=== PATIENT | female | born 1950 | race African-American/Black ===

== ENCOUNTER 2022-10-16 16:18 | Emergency (ER) | payer MEDICARE, MEDICAID ==
[~2022-10-16] VITALS: Ht 160 cm; Wt 73.0 kg
[~2022-10-16 16:18] MED LIST: AMLO5TAB88 MT; ASPI-1497 MT; CEPH500C2 MT; DOCU-150 MT; FAMO40TA7 MT; SIMV-43 MT
[2022-10-16 16:41] VITALS: BP 126/67; O2SAT 100
[2022-10-16] MEDS ORDERED: METHYLPREDNISOLONE SOD SUCC 125MG/2ML (ACT-O-VIAL) IM NR (20:27)
[2022-10-16] MEDS ORDERED: ALBU18HF2 IH (21:07)
[2022-10-16] MEDS ORDERED: METHYLPREDNISOLONE SOD SUCC 125MG VIAL IM NR (22:00)
[2022-10-16 22:08] VITALS: PULSE 79; RESP 16; TEMP 98.7
== END 2022-10-16 22:09 | disposition home or self-care (01) ==
LOC: ER 16:32
DX: J98.01 Acute bronchospasm (principal); F41.9 Anxiety disorder, unspecified; F32.9 Major depressive disorder, single episode, unspecified; E78.00 Pure hypercholesterolemia, unspecified; I10 Essential (primary) hypertension; Z79.899 Other long term (current) drug therapy
CPT/HCPCS: 99283; 71045; 96372; J2930